=== PATIENT | male | born 1990 | race Caucasian/White ===

== ENCOUNTER 2023-11-24 07:06 | Emergency (ER) | payer MEDICAID ==
[~2023-11-24] VITALS: Ht 167.6 cm; Wt 122.5 kg
[2023-11-24 07:22] VITALS: O2SAT 97
[2023-11-24] MEDS: ACETAMINOPHEN 325MG TABLET PO ONE (07:55)
[2023-11-24 09:01] VITALS: BP 148/89; PULSE 98; RESP 18; TEMP 98.9
[2023-11-24] MEDS ORDERED: TOPUD MT (09:04)
== END 2023-11-24 10:03 | disposition home or self-care (01) ==
LOC: ER 07:20
DX: M25.572 Pain in left ankle and joints of left foot (principal)
CPT/HCPCS: 99282